=== PATIENT | male | born 1975 | race Asian ===

== ENCOUNTER 2021-07-02 19:37 | Emergency (ER) | payer OTHER, BC ==
[~2021-07-02] VITALS: Ht 175.3 cm; Wt 71.7 kg
[2021-07-02 20:16] VITALS: BP_SYST 187
--- NOTE | 2021-07-02 20:37 | NUR ---
ER Dr. Hutchinson in triage room examining patient.
--- NOTE | 2021-07-02 20:40 | NUR ---
PATIENT BROUGHT IN COMPLAINING OF BURNING IN EPIGASTRIC REGION X 1 WEEK WITH NAUSEA AND VOMITING. HISTORY OF PERITONEAL DIALYSIS. DENIES ANY PAIN AT THIS TIME
[2021-07-02] MEDS ORDERED: MAG HYDROX/AL HYDROX/SIMETH 30 ML, DICYCLOMINE HCL 20 MG, LIDOCAINE VISCOUS 2% 15ML (PO... PO ONE ×3 (20:45)
[2021-07-02 21:05] LABS: BASOPHILS # (AUTO) 0.1 K/uL (0.0-0.2); BASOPHILS % (AUTO) 1.2 % (0.0-2.0); EOSINOPHILS # (AUTO) 0.1 K/uL (0.0-0.4); EOSINOPHILS % (AUTO) 2.3 % (0.0-4.0); HEMATOCRIT 31.1 % (36-54); HEMOGLOBIN 10.7 g/dL (14.0-18.0); LYMPHOCYTES # (AUTO) 0.9 K/uL (1.0-5.5); LYMPHOCYTES % (AUTO) 14.1 % (20.5-51.5); MEAN CORPUSCULAR HEMOGLOBIN 33 pg (27-31); MEAN CORPUSCULAR HGB CONC 34 % (32-36); MEAN CORPUSCULAR VOLUME 95 fL (79.0-98.0); MONOCYTES # (AUTO) 0.4 K/uL (0.0-1.0); MONOCYTES % (AUTO) 6.1 % (1.7-9.3); NEUTROPHILS # (AUTO) 4.8 K/uL (1.8-7.7); NEUTROPHILS % (AUTO) 76.3 % (40.0-70.0); PLATELET COUNT (AUTO) 235 K/uL (130-430); RED BLOOD CELL COUNT(AUTO) 3.27 MIL/uL (4.2-6.2); WHITE BLOOD COUNT (AUTO) 6.3 K/uL (4.8-10.8)
[2021-07-02 21:12] LABS: ANION GAP 8 (5-15); CALCIUM 11.1 mg/dL (8.4-11.0); CHLORIDE 90 mmol/L (98-107); GLUCOSE 141 mg/dL (70-99); POTASSIUM 3.6 mmol/L (3.5-5.1); SODIUM SERUM 128 mmol/L (136-145); UREA NITROGEN, BLOOD 77 mg/dL (8-21)
[2021-07-02 21:16] LABS: GFR AFRICAN AMERICAN 4 mL/min (>90)
[2021-07-02 21:21] LABS: ALANINE AMINOTRANSFERASE 21 U/L (12-78); ALBUMIN 3.1 g/dL (3.4-4.8); ASPARTATE AMINOTRANSFERASE 13 U/L (10-37); TOTAL BILIRUBIN 0.2 mg/dL (0.0-1.0)
[2021-07-02 21:23] LABS: CREATININE 17.03 mg/dL (0.55-1.30)
--- NOTE | 2021-07-02 21:39 | NUR ---
Patient to ER bed 06 to gown for evaluation. Side rails up. Report given to MONA MOBLEY
--- NOTE | 2021-07-02 21:50 | NUR ---
MEDICATED PER MD ORDERS. PATIENT TOLERATED WELL.
[2021-07-02] MEDS ORDERED: OMEP20CA15 PO (22:00)
[2021-07-02 22:10] VITALS: BP_SYST 142
--- NOTE | 2021-07-02 22:10 | NUR ---
Patient given written and verbal discharge instructions and verbalizes understanding. ER MD discussed with patient the results and treatment provided. Patient in stable condition. ID arm band removed. Rx of OMEPRAZOLE given. Patient educated on pain management and to follow up with PMD. Pain Scale 0/10 Opportunity for questions provided and answered. Medication side effect fact sheet provided.
== END 2021-07-02 22:10 | disposition home or self-care (01) ==
LOC: EDSEX 19:37 → SED 19:37
DX: K21.9 Gastro-esophageal reflux disease without esophagitis (principal)
CPT/HCPCS: 36415; 71045; 80053; 84484; 85025; 93005; 99285; J2001; 99284